=== PATIENT | female | born 1965 ===

== ENCOUNTER 2017-03-16 14:31 | Outpatient (CLI) | payer BC ==
--- NOTE | 2017-03-23 18:18 | Magnetic Resonance Report ---
MR scan of the cranium was performed with and without contrast. Pulse sequences included: 1. T1 weighted sagittal and axial images without contrast and T1 axial with contrast and reformatted coronal and sagittal images with contrast 2. T2 weighted axial images 3. FLAIR axial adn coronal images 4. Diffusion-weighted axial images 5. Apparent diffusion coefficient images Views of the posterior fossa showed a normal craniocervical junction. Cerebellar pontine angles were normal with normal seventh-eighth nerve complexes. Brainstem and cerebellum were normal. The ventricular system showed no dilatation or distortion. Images of the hemispheres showed a small area of increased signal in the right parietal white matter that did not enhance with contrast. This lesion was not seen on T1 weighted images. Sinuses, pituitary, flow voids in the [place], orbits, and basal ganglia were normal. There are no abnormal areas of enhancement with contrast. Impression: Abnormal MR scan of the cranium with and without contrast the study showed one punctate lesion in the right parietal region of an undetermined significance-- possibly a small infarct or an area of demyelination and unlikely to be of clinical significance
== END 2017-03-16 14:32 | disposition home or self-care (01) ==
LOC: SPVIMAG 14:31
PROVIDERS: ATTEND Specialist
DX: R51 Headache (principal); H53.8 Other visual disturbances; R93.8 Abnormal findings on diagnostic imaging of other specified body structures
CPT/HCPCS: 70553; A9577